=== PATIENT | female | born 1995 | race African-American/Black ===

== ENCOUNTER 2017-11-10 12:59 | Emergency (ER) | payer MEDICAID, SELFPAY ==
[2017-11-10 13:33] LABS: Pregnancy Test - Urine (BHCG) Negative (Negative); Pregu Control Background? CLEAR/WHITE (CLR/WHITE); Pregu Control Bar Appear? YES (CONTROL BAR); Specific Gravity 1.027 (1.002-1.036)
[2017-11-10 14:17] LABS: Bilirubin Small (Negative); Blood, Urine Negative (Negative); Clarity CLOUDY (Clear); Glucose, Urine (Dipstick) Negative (Negative); Leukocyte Negative (Negative); Nitrite Negative (Negative); Protein, Urine (Dipstick) Negative (Neg-Trace); Specific Gravity, Urine 1.029 (1.002-1.036); pH, Urine 6.5 (5.0-9.0)
[2017-11-10] MEDS ORDERED: Ibuprofen 200 MG TAB ONE (14:18)
--- NOTE | 2017-11-10 15:36 | RAD ---
PA AND LATERAL CHEST X-RAY: 11/10/17 HISTORY: Cough. COMPARISON: None available. FINDINGS: The cardiac silhouette and pulmonary vasculature are within normal limits. The lungs are clear. The o sseous structures are intact. IMPRESSION: No acute cardiopulmonary process. POS: [facility]
== END 2017-11-10 15:34 | disposition home or self-care (01) ==
LOC: ERS 12:59
DX: B34.9 Viral infection, unspecified (principal)
CPT/HCPCS: 71046; 81003; 81025; 93005

== ENCOUNTER 2018-10-13 21:33 | Emergency (ER) | payer SELFPAY ==
[2018-10-13 22:12] LABS: Bilirubin Negative (Negative); Blood, Urine Negative (Negative); Clarity CLEAR (Clear); Glucose, Urine (Dipstick) Negative (Negative); Leukocyte Negative (Negative); Nitrite Negative (Negative); Protein, Urine (Dipstick) Negative (Neg-Trace); Specific Gravity, Urine 1.032 (1.002-1.036)
[2018-10-13 22:14] LABS: Pregnancy Test - Urine (BHCG) Negative (Negative); Pregu Control Background? CLEAR/WHITE (CLR/WHITE); Pregu Control Bar Appear? YES (CONTROL BAR); Specific Gravity 1.032 (1.002-1.036)
[2018-10-13] MEDS ORDERED: cefTRIAXone\\ROCEPHIN 250 MG VIAL ONE (22:26)
[2018-10-13] MEDS ORDERED: Azithromycin 250 MG TAB ONE (22:26)
[2018-10-13] MEDS ORDERED: Lidocaine 1% PF 5 ML VIAL ONE (22:27)
[2018-10-15 22:49] LABS: Chlamydia by PCR Not Detected (NotDetected); GC by PCR Not Detected (NotDetected)
== END 2018-10-13 23:02 | disposition home or self-care (01) ==
LOC: ERS 21:33
DX: Z20.2 Contact with and (suspected) exposure to infections with a predominantly sexual mode of transmission (principal)
CPT/HCPCS: 81003; 81025; 87480; 87491; 87510; 87591; 87660; 96372; J0696; J2001

== ENCOUNTER 2019-04-04 | Emergency (ER) | payer OTHER, SELFPAY ==
[2019-04-04] MEDS ORDERED: Acetaminophen 500 MG TAB ONE (00:53)
== END 2019-04-04 01:30 | disposition home or self-care (01) ==
LOC: ERS
DX: O9A.212 Injury, poisoning and certain other consequences of external causes complicating pregnancy, second trimester (principal); S39.012A Strain of muscle, fascia and tendon of lower back, initial encounter; Z3A.18 18 weeks gestation of pregnancy; V89.2XXA Person injured in unspecified motor-vehicle accident, traffic, initial encounter
CPT/HCPCS: 36415; 86900; 86901; 99283

== ENCOUNTER 2019-08-16 22:25 | Day surgery (SDC) | payer OTHER ==
[2019-08-16 23:04] VITALS: BMI 26.5
[2019-08-16 23:04] LABS: Amnisure Internal Control QC ACCEPTABLE (ACCEPTABLE); Amnisure Test No Membranes Rupture (No Rupture)
[2019-08-16] MEDS ORDERED: hydrALAZINE 20 MG/ML VIAL SLOW IVP PRN (23:21)
[2019-08-16] MEDS ORDERED: Morphine 10 MG/ML VIAL IM SCH (23:30)
[2019-08-16] MEDS ORDERED: Ondansetron ODT 8 MG TAB ONE (23:30)
[2019-08-16] MEDS ORDERED: Morphine 10 MG/ML VIAL ONE (23:30)
[2019-08-16] MEDS: Ondansetron ODT 8 MG TAB SL SCH ×2 (23:37→23:43)
--- NOTE | 2019-08-17 07:59 | PRG ---
DATE OF SERVICE: 08/16/2019 PRIMARY OB: Fina Cruz MD CHIEF COMPLAINT: Abdominal pain. HISTORY OF PRESENT ILLNESS: The patient is a 23-year-old G1, P0 female with an intrauterine at 38 weeks and 1 day, presenting to Labor and Delivery for uterine contractions and for lower pelvic pain and back pain. The patient reports that she has been having uterine contractions for the last 2 hours that she feels every 4-5 minutes. The patient denies any vaginal bleeding or leakage of fluid. She denies any fever or fall. She has had some nausea. Denies vomiting. Denies diarrhea or constipation, though she feels like she is unable to have a bowel movement today. Denies any new rashes, hip problems, knee problems, muscle weakness. Denies urinary urgency. PAST MEDICAL HISTORY: History of fibroid uterus, menorrhagia, psoriasis and anemia. PAST SURGICAL HISTORY: She has had a benign breast lump removed. MEDICATIONS: vitamins. ALLERGIES: NO KNOWN DRUG ALLERGIES. SOCIAL HISTORY: Denies drug, alcohol, or tobacco use. OBSTETRIC LABS: Blood type is O positive. Antibody screen is negative. She is rubella immune. RPR is nonreactive. GC and chlamydia are negative. HIV is nonreactive. Hepatitis B surface antigen nonreactive. 1-hour Glucola is 89. REVIEW OF SYSTEMS: Per HPI. PHYSICAL EXAMINATION: VITAL SIGNS: Blood pressure , heart rate of 90, respiratory rate 20, saturating 100% on room air, and temperature 99.2. GENERAL: The patient appears to be visibly uncomfortable. She is alert, oriented, cooperative, and pleasant to interact with. HEAD: Normocephalic, atraumatic. LUNGS: Clear to auscultation bilaterally. HEART: Regular rate and rhythm. ABDOMEN: Gravid and soft. She has SI joint tenderness. She also has tenderness in the right lower pelvis with deviation of the uterus to the patient's left. EXTREMITIES: Nontender and nonedematous. Cervix is 1, 50, -2 station, unchanged after 3 hours. heart tracing shows a baseline in the 120s with moderate long-term variability, positive 15 x 15 accelerations, no decelerations. Contraction pattern shows irritability with occasional contractions. ASSESSMENT AND PLAN: The patient is a 23-year-old primiparous with an intrauterine at 39 weeks and 1 day, who is scheduled to see Dr. Cruz in 1 week. She has been given 10 mg of morphine IM and Zofran and instructions to return back to Labor and delivery if she shows progression in the intensity of her uterine contractions or frequency. The patient has been given term labor precautions. Fetus has reactive NST. Job ID: [id number]
[2019-08-17] MEDS ORDERED: FLU VACC QS2019-20(6MOS UP)/PF 60 MCG/0.5 ML SYRINGE IM ONE (09:00)
== END 2019-08-17 02:34 | disposition home or self-care (01) ==
LOC: L&D/OP 22:25
PROVIDERS: ATTEND Obstetrics & Gynecology
DX: O47.1 False labor at or after 37 completed weeks of gestation (principal); Z3A.39 39 weeks gestation of pregnancy
CPT/HCPCS: 84112; 96372; 99283; J2270

== ENCOUNTER 2019-08-19 20:39 | Day surgery (SDC) | payer OTHER ==
[2019-08-19 21:06] VITALS: BP 122/68; TEMP 99.2; BMI 26.5
[2019-08-19 21:28] LABS: Amnisure Test No Membranes Rupture (No Rupture)
[2019-08-19 21:29] LABS: Amnisure Internal Control QC ACCEPTABLE (ACCEPTABLE)
--- NOTE | 2019-08-20 04:42 | SS ---
DATE OF ADMISSION: 08/19/2019 DATE OF DISCHARGE: 08/19/2019 REGULAR PHYSICIAN: Fina Cruz MD. EVALUATING PHYSICIAN: Macho Villanueva MD. CHIEF COMPLAINT: Leakage of fluid at home. HISTORY OF PRESENT ILLNESS: Ms. Braun is a 23-year-old black G1, P0, with an estimated date of confinement of 08/30/2019, who presents complaining of suspected leakage of fluid since 7:30 tonight. She states she did not wear a pad to the hospital. care has been with Dr. Fina Cruz without reported complications. PAST MEDICAL HISTORY: None. PAST SURGICAL HISTORY: Includes removal of breast tissue, 2013. CURRENT MEDICATIONS: vitamins. ALLERGIES: NO KNOWN ALLERGIES. SOCIAL HISTORY: Denies tobacco, alcohol, or drug use. FAMILY HISTORY: Unremarkable. REVIEW OF SYSTEMS: Denies nausea, vomiting, fever, chills, vaginal bleeding, or decreased movement. PHYSICAL EXAMINATION: VITAL SIGNS: In triage, her vital signs are stable and she is afebrile. GENERAL: She is in no distress. ABDOMEN: Soft, nontender, and gravid. PELVIC: Exam by a Labor nurse shows the cervix to be 1-2 cm dilated, 50% effaced with the vertex at the -2 station. AmniSure was performed prior to the exam and this returns negative. heart rate tracing is initially in the 160s, with oral hydration baseline drops in the 150s with spontaneous accelerations. Irregular contractions were seen. ASSESSMENT: 1. 38-week intrauterine . 2. No evidence of ruptured membranes. PLAN: The patient will be dismissed to home. The Labor nurses were in contact with Dr. Fina Cruz throughout her assessment. The patient is scheduled to be induced within the next week. Job ID: [id number]
== END 2019-08-19 23:10 | disposition home or self-care (01) ==
LOC: L&D/OP 20:39
PROVIDERS: ATTEND Obstetrics & Gynecology
DX: O99.89 Other specified diseases and conditions complicating pregnancy, childbirth and the puerperium (principal); N89.8 Other specified noninflammatory disorders of vagina; Z3A.38 38 weeks gestation of pregnancy
CPT/HCPCS: 84112

== ENCOUNTER 2019-08-22 02:54 | Inpatient (IN) | payer OTHER ==
[2019-08-22 03:19] VITALS: BMI 26.5
[2019-08-22] MEDS ORDERED: Morphine 10 MG/ML VIAL ONE (04:10)
[2019-08-22] MEDS ORDERED: hydrALAZINE 20 MG/ML VIAL SLOW IVP PRN ×3 (04:10→16:38)
[2019-08-22] MEDS ORDERED: Morphine 10 MG/ML VIAL IM ONE (04:30)
--- NOTE | 2019-08-22 06:51 | PDOC.FPROB ---
FMR OB H&P: HPI - History of Present Illness Chief Complaint: Contractions Indentification: 23 year old at 38.6 wks History of Present Illness: 23 year old at 38.6 wks presents with contractions q2-4 min since 1:15 AM. Patient states the pain is 10/10. She denies any vaginal bleeding, vaginal discharge, LoF. Endorses good movement. Primary Care Physician: Dr. 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: Hx of uterine fibroids - Surgical History Sx History: Denies - Social History Social History: Denies tobacco, alcohol, or drug use - Family History Family History: Noncontributory FMR OB H&P: Medications - Current Home Medications: Medication Instructions Recorded Confirmed Type Vit37/Iron/Folic Acid 1 tab PO DAILY 08/16/19 08/22/19 History [Prenata Chewable Tablet] Allergies/Adverse Reactions: Allergies Allergy/AdvReac Type Severity Reaction Status Date / Time No Known Allergies Allergy Verified 08/22/19 03:21 FMR OB H&P: ROS - Review of Systems General: denies: fever/chills, weight/appetite/sleep changes Eyes: denies: vision changes, double vision ENT: denies: nasal congestion, sore throat Cardiovascular: denies: chest pain, palpitation, edema Respiratory: denies: cough, congestion, shortness of breath Gastrointestinal: reports: abdominal pain. denies: nausea, vomiting, diarrhea Genitourinary (Female): reports: contractions, vaginal pressure. denies: dysuria, vaginal discharge, vaginal bleeding Musculoskeletal: denies: pain, stiffness Neurologic: denies: syncope, seizures Integumentary: denies: itching, rash Hematologic/Lymphatic: denies: prolonged or excessive bleeding Psychological: denies: depression, anxiety FMR OB H&P: Vital Signs - Maternal Vital signs: BP 125/84 Pulse 90 Afebrile - Heart Tones Baseline: 140 Variability: moderate Acceleration: present Deceleration: absent Category: category 1 Cade contractions every: q1-4 min FMR OB H&P: Physical Exam - Physical Exam General: NAD, awake, alert and oriented HEENT: EOMI, MMM, grossly normal vision, grossly normal hearing Heart: RRR, pulses present, no edema General: no respiratory distress Abdomen: soft, gravid, fundus(cm), non-tender Musculoskeletal: pulses present, FROM in all four extremities Neurological: no tremor, no focal deficit Skin: no rash, capillary refill <2 seconds Lymphatic: no unusual bruising or bleeding, no purpura Psychiatric: intact recent and remote memory, good judgement and insight, normal mood and affect - Pelvic Exam SVE: 2 FMR OB H&P: A/P - Problem List (1) Term Status: Acute Code(s): Z34.90 - ENCNTR FOR SUPRVSN OF NORMAL , UNSP, UNSP TRIMESTER Disposition: 23 year old at 38.6 wks presents with contractions TIUP - Labor rule out - 2, posterior on admission - Recheck in 2-3 hours - 10 mg IM morphine given for pain control - GBS neg Dispo: Will reassess in 2-3 hours. Discussion: Date/Time: 08/22/19 7780 Signature: Angeline Meyer DO PGY-3 Addendum - Attending - Attending Attestation Date/Time: 08/24/19 0960 I personally evaluated the patient and discussed the management with Dr. Meyer I agree with the History, Examination, Assessment and Plan documented above with any addition or exceptions noted below.
[2019-08-22] MEDS ORDERED: Butorphanol Tartrate 1 MG/ML VIAL SLOW IVP PRN ×2 (07:01→10:25)
[2019-08-22] MEDS ORDERED: Promethazine HCl 25 MG in Sodium Chloride 0.9% 50 ML IVPB SCH (07:15)
[2019-08-22] MEDS ORDERED: Zolpidem Tartrate 5 MG TAB PO PRN (10:25)
[2019-08-22] MEDS ORDERED: Promethazine HCl 25 MG/ML VIAL IM PRN ×2 (10:25→12:24)
[2019-08-22] MEDS ORDERED: HYDROcodone/Acetaminophen 5/325 mg Tablet PO PRN ×4 (10:25→16:38)
[2019-08-22] MEDS ORDERED: Ibuprofen 800 MG TAB PO PRN (10:25)
[2019-08-22] MEDS ORDERED: NS / Oxytocin 40 units/1000ml 1,000 ML IV PRN (10:25)
[2019-08-22] MEDS ORDERED: Lidocaine 1% (PF) 30 ML VIAL SC PRN (10:25)
[2019-08-22] MEDS ORDERED: Docusate 100 MG CAP PO PRN (10:25)
[2019-08-22] MEDS ORDERED: Ondansetron PF 4 MG/2 ML Vial IVP PRN ×3 (10:25→16:38)
[2019-08-22] MEDS ORDERED: Fentanyl 4 mcg/Bup 0.1% Cadd 100 ML ONE (10:28)
[2019-08-22] MEDS ORDERED: NS w/ Oxytocin 10 units 500 ML IV SCH (10:30)
[2019-08-22] MEDS ORDERED: Lidocaine 1.5%/Epinephrine 1:200,000 5 ML AMPUL IJ ONE (10:40)
[2019-08-22 10:53] LABS: Hemoglobin 11.3 g/dL (12.0-16.0); Mean Corpuscular HGB CONC 32.2 g/dL (32.0-36.0); Mean Corpuscular Hemoglobin 22.7 pg (27.0-31.0); Mean Corpuscular Volume 70.6 fL (78.0-98.0); Mean Platelet Volume 11.9 fL (7.4-10.4); Platelet Count 252 thou/uL (130-400); RBC Distribution Width 14.7 % (11.5-14.5); Red Blood Cell (RBC) Count 4.98 mill/uL (4.20-5.40); White Blood Cell (WBC) Count 13.9 thou/uL (4.8-10.8)
[2019-08-22 11:21] LABS: HBSAg Index 0.21 S/CO (0-0.99); Hep B Surf Ag Non-Reactive S/CO (NonReactive)
[2019-08-22 11:23] LABS: Syphilis Antibody Nonreactive (Nonreactive); Syphilis Antibody Index 0.04 S/CO (<1.00 Non-Reactive)
[2019-08-22] MEDS ORDERED: Naloxone HCl 0.4 mg/ml Vial IVP PRN ×2 (12:24)
[2019-08-22] MEDS ORDERED: diphenhydrAMINE 50 MG/ML VIAL IVP PRN (12:24)
[2019-08-22] MEDS ORDERED: ePHEDrine/0.9% NaCl/PF SYRINGE 50 mg/10 ml SLOW IVP PRN (12:24)
[2019-08-22] MEDS ORDERED: Acetaminophen 325 MG TAB PO PRN (12:24)
[2019-08-22] MEDS ORDERED: Lactated Ringer's 500 ML IV PRN (12:24)
[2019-08-22] MEDS ORDERED: Communication Order-Pharmacy FS SCH (12:30)
[2019-08-22] MEDS ORDERED: Fentanyl 4 mcg/Bupivacaine 0.1% Cassette 100 ML EPIDURAL SCH (12:30)
[2019-08-22] MEDS: Lactated Ringer's 1,000 ML IV SCH ×2 (14:05→21:47)
[2019-08-22] MEDS ORDERED: Fentanyl 100 MCG/2 ML VIAL ONE (15:00)
[2019-08-22] MEDS ORDERED: Lidocaine 1% (PF) 30 ML VIAL ONE (15:32)
[2019-08-22] MEDS ORDERED: NS / Oxytocin 40 units/1000ml 1,000 ML ONE (15:32)
[2019-08-22] MEDS ORDERED: Lanolin Ointment 7 GM TUBE TOP PRN (16:38)
[2019-08-22] MEDS ORDERED: Benzocaine-Menthol 82.5 ML CAN TOP PRN (16:38)
[2019-08-22] MEDS ORDERED: Milk Of Magnesia 30 ML UDCUP PO PRN (16:38)
[2019-08-22] MEDS ORDERED: Bisacodyl 10 MG SUPP PR PRN (16:38)
[2019-08-22] MEDS ORDERED: Preparation H Ointment 28 GM TUBE PR PRN (16:38)
[2019-08-22] MEDS ORDERED: NS / Oxytocin 40 units/1000ml 1,000 ML IV SCH (16:45)
[2019-08-22] MEDS: Docusate Calcium (SURFAK) 240 MG CAP PO SCH (21:46)
[2019-08-22] MEDS: Ibuprofen 800 MG TAB PO SCH (21:46)
[2019-08-22] MEDS: Ferrous Sulfate 325 MG TAB PO SCH (21:47)
[2019-08-23] MEDS: Lactated Ringer's 1,000 ML IV SCH ×3 (03:11→17:23)
[2019-08-23] MEDS: Ibuprofen 800 MG TAB PO SCH ×3 (05:21→21:46)
[2019-08-23] MEDS: Ferrous Sulfate 325 MG TAB PO SCH ×2 (07:34→17:23)
[2019-08-23] MEDS: Prenatal Vitamin 1 TAB PO SCH (08:27)
[2019-08-23] MEDS: Docusate Calcium (SURFAK) 240 MG CAP PO SCH ×2 (08:27→21:46)
[2019-08-23] MEDS ORDERED: Adacel (T-DAP) 0.5 ML SYRINGE IM ONE (09:00)
[2019-08-24] MEDS: Ibuprofen 800 MG TAB PO SCH ×2 (06:24→14:15)
[2019-08-24] MEDS: Lactated Ringer's 1,000 ML IV SCH ×2 (06:25→09:57)
[2019-08-24 07:59] VITALS: BP 125/81; TEMP 98.2
[2019-08-24] MEDS: Ferrous Sulfate 325 MG TAB PO SCH (08:33)
[2019-08-24] MEDS: Prenatal Vitamin 1 TAB PO SCH (09:04)
[2019-08-24] MEDS: Docusate Calcium (SURFAK) 240 MG CAP PO SCH (09:04)
--- NOTE | 2019-08-24 15:29 | OP ---
DATE OF PROCEDURE: 08/22/2019 PREOPERATIVE DIAGNOSES: 1. A 23-year-old female, G1, who presented at 2 cm, 75% effaced and -3 station, and progressed to active labor. 2. Artificial rupture of membranes at 4 cm with thick meconium. 3. Category 2 tracing with variables and intermittent late deceleration resolved with an amnioinfusion. 4. Augmentation of labor with Pitocin. 5. Group B strep negative. POSTOPERATIVE DIAGNOSES: 1. A 23-year-old female, G1, who presented at 2 cm, 75% effaced and -3 station, and progressed to active labor. 2. Artificial rupture of membranes at 4 cm with thick meconium. 3. Category 2 tracing with variables and intermittent late deceleration resolved with an amnioinfusion. 4. Augmentation of labor with Pitocin. 5. Group B strep negative. 6. Live born female with Apgars of 9 and 9 at one and five minutes respectively, weighing 6 pounds 13 ounces. ANESTHESIA: Epidural with a re-dose attempted. PROCEDURE PERFORMED: Spontaneous vaginal delivery. ESTIMATED BLOOD LOSS: 97 mL. CLINICAL HISTORY: This patient is a 23-year-old female, G1, who presented to Labor and Delivery with a concern for irregular painful contractions. She was watched for several hours and noted to make some effacement change, however, did not make any dilation change. She was admitted and continued to be watched and went from 2 cm to 4 cm and -2 station. An amniotomy was performed. At that point in time, the patient was admitted as she had thick green meconium and continued to contract thereafter. She requested an epidural for maternal analgesia. Once this was placed, she did get some relief from the epidural. She did have variables and a few late decelerations, which resolved with repositioning and an amnioinfusion. She progressed to 7 to 8 cm dilation and was uncomfortable. The attempt at replacing her epidural was performed, but unsuccessful. The patient rapidly progressed and was involuntarily pushing when she was complete +2 station at the time of pushing. DESCRIPTION OF PROCEDURE: With good maternal effort, the patient was able to bring the vertex within 3 pushes to delivering the head in the ABIGAIL position. The anterior shoulder followed by the posterior shoulder followed by the remainder of the 's body was delivered. The cord was doubly clamped and cut by a friend of the family in attendance to the delivery. The was stimulated, bulb suctioned, and placed on the maternal abdomen for continued care by the nursing staff. The cord blood was obtained, and the placenta was delivered spontaneously intact with a 3-vessel. Exploration of the vagina, introitus, and the cervix noted no lacerations. The patient tolerated the procedure well and was able to recover on Labor and Delivery in satisfactory condition with her . All needle, sponge, lap, and instrument counts were correct x2 at the end of this procedure. Again, the was a live born female, weighing 6 pounds 13 ounces with Apgars of 9 and 9 at one and five minutes respectively. There were no other issues surrounding this delivery. Job ID: [id number]
== END 2019-08-24 15:00 | disposition home or self-care (01) | DRG 807 ==
LOC: L&D/OP 02:54 → L&D 10:25 → 3SW 18:44
PROVIDERS: ADMIT Obstetrics & Gynecology; ATTEND Obstetrics & Gynecology
PROC: 10907ZC Drainage of Amniotic Fluid, Therapeutic from Products of Conception, Via Natural or Artificial Opening (ICD-10-PCS; principal; 2019-08-24)
PROC: 10E0XZZ Delivery of Products of Conception, External Approach (ICD-10-PCS; 2019-08-24)
PROC: 3E033VJ Introduction of Other Hormone into Peripheral Vein, Percutaneous Approach (ICD-10-PCS; 2019-08-24)
DX: O77.0 Labor and delivery complicated by meconium in amniotic fluid (principal); Z37.0 Single live birth; O99.344 Other mental disorders complicating childbirth; O99.02 Anemia complicating childbirth; F41.9 Anxiety disorder, unspecified; O76 Abnormality in fetal heart rate and rhythm complicating labor and delivery; Z3A.38 38 weeks gestation of pregnancy; D50.9 Iron deficiency anemia, unspecified
CPT/HCPCS: 36415; 51702; 85027; 86780; 86850; 86900; 86901; 87340; 99285; J0595; J2001; J2270; J2550; J2590; J3010; J3490